=== PATIENT | male | born 1950 | race African-American/Black ===

== ENCOUNTER 2016-06-05 10:32 | Observation (INO) | payer MEDICARE, OTHER ==
[~2016-06-05] VITALS: Ht 162.6 cm; Wt 72.2 kg
[2016-06-05 11:19] LABS: BASO % 1 % (0-3); EOS % 1 % (0-3); HEMATOCRIT 41.5 % (39.0-53.0); HEMOGLOBIN 13.9 g/dL (13.0-17.5); LYMPH # 1.5 x10^3/uL (1.0-4.8); LYMPH % 17 % (24-48); MEAN CORPUSCULAR HEMOGLOBIN 32 pg (25-35); MEAN CORPUSCULAR HGB CONC 34 g/dL (31-37); MEAN CORPUSCULAR VOLUME 95 fL (79-100); MONO % 11 % (0-9); NEUT % 71 % (31-73); PLATELET COUNT 307 x10^3/uL (140-400); RED BLOOD COUNT 4.38 x10^6/uL (4.30-5.70); WHITE BLOOD COUNT 8.7 x10^3/uL (4.0-11.0)
--- NOTE | 2016-06-05 11:19 | RAD ---
Two-view chest x-ray History: Syncopal episode after a dizzy spell this morning. Comparison: March 02, 2005. Findings: No acute lung infiltrate or pleural effusion or pulmonary edema or pneumothorax or lung mass is seen. The heart size and pulmonary vasculature and mediastinum and both marco antonio are stable. Severe scoliosis is seen. IMPRESSION: No acute radiographic abnormality is seen.
--- NOTE | 2016-06-05 11:21 | PHYS DOC ---
Past Medical History Past Medical History: Arrhythmia, Cancer, CHF, Lung Disease Additional Past Medical Histor: SCOLIOSIS, LUNG CA Past Surgical History: Other Additional Past Surgical Histo: L LOBECTOMY Alcohol Use: None Drug Use: None Adult General Chief Complaint Chief Complaint: SYNCOPE HPI HPI Patient is a 65 year old male who presents by EMS for syncopal episode at [facility]. He notes feeling lightheaded and having blurry vision prior to passing out. He had LOC for approx 2 min witnessed by bystanders. He now feels well. He denies chest pain, dyspnea, headache, numbness, tingling, weakness. Denies change in normal morning routine otherwise. No recent illness. States he has h /o CHF and lung cancer that was resected. He has not followed up in years with anyone including cardiology. Review of Systems Review of Systems Constitutional: Denies fever or chills [] Eyes: Denies change in visual acuity, redness, or eye pain [] HENT: Denies nasal congestion or sore throat [] Respiratory: Denies cough or shortness of breath [] Cardiovascular: No additional information not addressed in HPI [] GI: Denies abdominal pain, nausea, vomiting, bloody stools or diarrhea [] : Denies dysuria or hematuria [] Musculoskeletal: Denies back pain or joint pain [] Integument: Denies rash or skin lesions [] Neurologic: Denies headache, focal weakness or sensory changes [] Endocrine: Denies polyuria or polydipsia [] Allergies Allergies Allergies Coded Allergies Type Severity Reaction Last Updated Verified No Known Drug Allergies 10/22/15 No Physical Exam Physical Exam Constitutional: Well developed, well nourished, no acute distress, non-toxic appearance. [] HENT: Normocephalic, atraumatic, bilateral external ears normal, oropharynx moist, nose normal. [] Eyes: PERRLA, EOMI. [] Neck: Normal range of motion, supple. [] Cardiovascular: Heart rate regular rhythm [] Lungs & Thorax: Bilateral breath sounds clear to auscultation [] Abdomen: Bowel sounds normal, soft, no tenderness. [] Skin: Warm, dry, no erythema, no rash. [] Back: No tenderness, no CVA tenderness. [] Extremities: No tenderness, ROM intact, no edema. [] Neurologic: Alert and oriented X 3, normal motor function, normal sensory function, no focal deficits noted. [] Psychologic: Affect normal, judgement normal, mood normal. [] Current Patient Data Vital Signs Vital Signs Date Time Temp Pulse Resp B/P Pulse Ox O2 Delivery O2 Flow Rate FiO2 06/05/16 11:04 72 23 133/78 95 Room Air 06/05/16 10:32 98.0 98.0 Lab Values Laboratory Tests Test 06/05/16 10:40 White Blood Count 8.7x10^3/uL (4.0-11.0) Red Blood Count 4.38x10^6/uL (4.30-5.70) Hemoglobin 13.9g/dL (13.0-17.5) Hematocrit 41.5% (39.0-53.0) Mean Corpuscular Volume 95fL (79-100) Mean Corpuscular Hemoglobin 32pg (25-35) Mean Corpuscular Hemoglobin Concent 34g/dL (31-37) Red Cell Distribution Width 13.0% (11.5-14.5) Platelet Count 307x10^3/uL (140-400) Neutrophils (%) (Auto) 71% (31-73) Lymphocytes (%) (Auto) 17% (24-48) L Monocytes (%) (Auto) 11% (0-9) H Eosinophils (%) (Auto) 1% (0-3) Basophils (%) (Auto) 1% (0-3) Neutrophils # (Auto) 6.1x10^3uL (1.8-7.7) Lymphocytes # (Auto) 1.5x10^3/uL (1.0-4.8) Monocytes # (Auto) 0.9x10^3/uL (0.0-1.1) Eosinophils # (Auto) 0.1x10^3/uL (0.0-0.7) Basophils # (Auto) 0.0x10^3/uL (0.0-0.2) Sodium Level 140mmol/L (136-145) Potassium Level 3.9mmol/L (3.5-5.1) Chloride Level 104mmol/L (98-107) Carbon Dioxide Level 30mmol/L (21-32) Anion Gap 6 (6-14) Blood Urea Nitrogen 13mg/dL (8-26) Creatinine 1.1mg/dL (0.7-1.3) Estimated GFR (Cockcroft-Gault) 80.8 Glucose Level 116mg/dL (70-99) H Calcium Level 9.2mg/dL (8.5-10.1) Magnesium Level 2.1mg/dL (1.8-2.4) Troponin I Quantitative < 0.017ng/mL (0.000-0.055) EW-Bae-D-Type Natriuretic Peptide 31pg/mL (0-124) Laboratory Tests 06/05/16 10:40 Laboratory Tests 06/05/16 10:40 EKG EKG EKG as interpreted by me as normal sinus rhythm, rate 76, no ST-T changes, normal intervals, no ectopy Radiology/Procedures Radiology/Procedures Chest xray as interpreted by me with no acute cardiopulmonary disease process Course & Med Decision Making Course & Med Decision Making Pertinent Labs and Imaging studies reviewed. (See chart for details) Workup is unremarkable. With history of congestive heart failure that is unmonitored, we will admit for syncope. Discussed case with Dr. Chiu, who will admit. Cardiology consultation placed. Rio Disclaimer Dragon Disclaimer This electronic medical record was generated, in whole or in part, using a voice recognition dictation system. Departure Departure Impression: Primary Impression: Syncope Disposition: 09 ADMITTED INPATIENT Condition: STABLE Referrals: NO PCP (PCP) Problem Qualifiers Primary Impression: Syncope Syncope type: unspecified Qualified Code: R55 - Syncope and collapse Ruth Ann RODRIGUEZ MD Jun 05, 2016 11:21
[2016-06-05 11:24] LABS: CALCIUM 9.2 mg/dL (8.5-10.1); CREATININE 1.1 mg/dL (0.7-1.3); GFR 80.8; MAGNESIUM 2.1 mg/dL (1.8-2.4); POTASSIUM 3.9 mmol/L (3.5-5.1)
--- NOTE | 2016-06-05 11:44 | EKG ---
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
--- NOTE | 2016-06-05 12:17 | ACF ---
Admission Forms Criteria SYNCOPE Clinical Indications for Admission to Inpatient Care ( Place 'X' for any and all applicable criteria): Admission is indicated for syncope and ANY ONE of the following (1)(2)(3)(4)(5) (6)(7) : [X]I. Inpatient admission required rather than observation care (Also use Syncope: Observation Care Criteria as appropriate) because of ANY ONE of the following: [ ]a) Hemodynamic instability that is severe or persistent [ ]b) Cardiac arrhythmias of immediate concern identified or strongly suspected (eg, needs electrophysiologic study) [ ]c) Acute coronary syndrome identified (Also use Myocardial Infarction or Angina Criteria form ) [ ]d) Structural cardiac disorder (eg, aortic stenosis) suspected as cause that requires immediate correction [ ]e) Respiratory symptoms (eg, dyspnea, tachypnea) that are severe or persistent [ ]f) Neurologic signs or symptoms that are severe or persistent ( eg, stroke, seizures, altered mental status) [ ]g) Severe electrolyte abnormalities requiring inpatient care [ ]h) Supplemental oxygen or respiratory treatment for over 24 hrs that are performable only in acute inpatient setting [ ]i) IV fluid to replace significant ongoing (eg, for over 24 hrs ) losses (>3 L/m2 per day) [ ]j) Continuous intravenous infusion of anticoagulation, platelet inhibitor, vasoactive, or antiarrhythmic medication(15)(16) [ ]k) Pulmonary artery catheter monitoring [ ]l) Temporary pacemaker placement(17) [ ]m) Emergent cardioversion(18) [X]n) Other conditions, treatment or monitoring requiring inpatient admission [ ]II. Suspicion of imminently dangerous cause (eg, rare causes like pericardial tamponade, pulmonary embolism) [ ]III. Syncope causing severe injury requiring hospitalization Extended stay beyond goal length of stay may be needed for(28) [ ]a) Dangerous arrhythmia(15)(23)(27)(29) [ ]b) Myocardial ischemia [ ]c) Seizure disorder [ ]d) Syncope-related injuries The original [employer] content created by [email or web address] has been revised. The portions of the content which have been revised are identified through the use of italic text or in bold, and [email or web address] has neither reviewed nor approved the modified material. All other unmodified content is copyright [employer]. Please see references footnoted in the original [facility] edition 2016 Admission Criteria Met?: Yes ANDREW RANGEL Jun 05, 2016 12:17
[2016-06-05 13:00] VITALS: BP 127/85
[2016-06-05 14:27] VITALS: BP 124/75
[2016-06-05] MEDS ORDERED: ACETAMINOPHEN 325 MG TABLET. PO PRN ×2 (14:30→14:45)
[2016-06-05] MEDS ORDERED: ONDANSETRON PF 4 MG/2 ML VIAL. IV PRN ×2 (14:30→14:45)
--- NOTE | 2016-06-05 14:37 | PDOC1 ---
History and Physical Current Problem List Problem List Problems Medical Problems: (1) Syncope Status: Acute Current Medications Current Medications Current Medications Medications (Trade) Dose Ordered Sig/Antonia Start Time Stop Time Status Last Admin Dose Admin Acetaminophen (Tylenol) 650 mg PRN Q4HRS PRN 06/05/16 14:30 06/06/16 14:29 UNV Ondansetron HCl (Zofran) 4 mg PRN Q8HRS PRN 06/05/16 14:30 06/06/16 14:29 UNV Allergies Allergies Allergies Coded Allergies Type Severity Reaction Last Updated Verified No Known Drug Allergies 10/22/15 No ROS Review of System CONSTITUTIONAL: No fever or chills EYES: No recent changes SKIN: No rash or itching CARDIOVASCULAR: syncope, RESPIRATORY: No SOB or cough GASTROINTESTINAL: No nausea, vomiting or abdominal pain NEUROLOGICAL: No headaches or weakness ENDOCRINE: No cold or heat intolerance GENITOURINARY: No urgency or frequency of urination MUSCULOSKELETAL: No back pain or joint pain LYMPHATICS: No enlarged lymph nodes PSYCHIATRIC: No anxiety or depression Physical Exam Physical Exam GEN.: No apparent distress. Alert and oriented. HEENT: Head is normocephalic, atraumatic NECK: Supple. LUNGS: Clear to auscultation. HEART: RRR, S1, S2 present. Peripheral pulses intact ABDOMEN: Soft, nontender. Positive bowel sounds. EXTREMITIES: Without any cyanosis. NEUROLOGIC: Normal speech, normal tone PSYCHIATRIC: Normal affect, normal mood. SKIN: No ulcerations Vitals Vitals Vital Signs Date Time Temp Pulse Resp B/P Pulse Ox O2 Delivery O2 Flow Rate FiO2 06/05/16 14:27 98.0 78 18 124/75 97 Room Air 98.0 Labs Labs Laboratory Tests Test 06/05/16 10:40 White Blood Count 8.7x10^3/uL (4.0-11.0) Red Blood Count 4.38x10^6/uL (4.30-5.70) Hemoglobin 13.9g/dL (13.0-17.5) Hematocrit 41.5% (39.0-53.0) Mean Corpuscular Volume 95fL (79-100) Mean Corpuscular Hemoglobin 32pg (25-35) Mean Corpuscular Hemoglobin Concent 34g/dL (31-37) Red Cell Distribution Width 13.0% (11.5-14.5) Platelet Count 307x10^3/uL (140-400) Neutrophils (%) (Auto) 71% (31-73) Lymphocytes (%) (Auto) 17% (24-48) Monocytes (%) (Auto) 11% (0-9) Eosinophils (%) (Auto) 1% (0-3) Basophils (%) (Auto) 1% (0-3) Neutrophils # (Auto) 6.1x10^3uL (1.8-7.7) Lymphocytes # (Auto) 1.5x10^3/uL (1.0-4.8) Monocytes # (Auto) 0.9x10^3/uL (0.0-1.1) Eosinophils # (Auto) 0.1x10^3/uL (0.0-0.7) Basophils # (Auto) 0.0x10^3/uL (0.0-0.2) Sodium Level 140mmol/L (136-145) Potassium Level 3.9mmol/L (3.5-5.1) Chloride Level 104mmol/L (98-107) Carbon Dioxide Level 30mmol/L (21-32) Anion Gap 6 (6-14) Blood Urea Nitrogen 13mg/dL (8-26) Creatinine 1.1mg/dL (0.7-1.3) Estimated GFR (Cockcroft-Gault) 80.8 Glucose Level 116mg/dL (70-99) Calcium Level 9.2mg/dL (8.5-10.1) Magnesium Level 2.1mg/dL (1.8-2.4) Troponin I Quantitative < 0.017ng/mL (0.000-0.055) OD-Xyi-G-Type Natriuretic Peptide 31pg/mL (0-124) Laboratory Tests Test 06/05/16 10:40 White Blood Count 8.7x10^3/uL (4.0-11.0) Red Blood Count 4.38x10^6/uL (4.30-5.70) Hemoglobin 13.9g/dL (13.0-17.5) Hematocrit 41.5% (39.0-53.0) Mean Corpuscular Volume 95fL (79-100) Mean Corpuscular Hemoglobin 32pg (25-35) Mean Corpuscular Hemoglobin Concent 34g/dL (31-37) Red Cell Distribution Width 13.0% (11.5-14.5) Platelet Count 307x10^3/uL (140-400) Neutrophils (%) (Auto) 71% (31-73) Lymphocytes (%) (Auto) 17% (24-48) Monocytes (%) (Auto) 11% (0-9) Eosinophils (%) (Auto) 1% (0-3) Basophils (%) (Auto) 1% (0-3) Neutrophils # (Auto) 6.1x10^3uL (1.8-7.7) Lymphocytes # (Auto) 1.5x10^3/uL (1.0-4.8) Monocytes # (Auto) 0.9x10^3/uL (0.0-1.1) Eosinophils # (Auto) 0.1x10^3/uL (0.0-0.7) Basophils # (Auto) 0.0x10^3/uL (0.0-0.2) Sodium Level 140mmol/L (136-145) Potassium Level 3.9mmol/L (3.5-5.1) Chloride Level 104mmol/L (98-107) Carbon Dioxide Level 30mmol/L (21-32) Anion Gap 6 (6-14) Blood Urea Nitrogen 13mg/dL (8-26) Creatinine 1.1mg/dL (0.7-1.3) Estimated GFR (Cockcroft-Gault) 80.8 Glucose Level 116mg/dL (70-99) Calcium Level 9.2mg/dL (8.5-10.1) Magnesium Level 2.1mg/dL (1.8-2.4) Troponin I Quantitative < 0.017ng/mL (0.000-0.055) VC-Til-K-Type Natriuretic Peptide 31pg/mL (0-124) VTE Prophylaxis Ordered VTE Prophylaxis Devices: No VTE Pharmacological Prophylaxi: No PATRIC BUCKLEY MD Jun 05, 2016 14:37
[2016-06-05] MEDS ORDERED: hydrALAZINE 20 MG/ML VIAL. IVP PRN (14:45)
[2016-06-05] MEDS ORDERED: IV NORMAL SALINE 1000ML BAG 1,000 ML IV ONE (14:45)
[2016-06-05] MEDS ORDERED: ALBUTEROL SULFATE 2.5 MG/3 ML NEBU. NEB PRN (14:45)
[2016-06-05] MEDS ORDERED: HYDROCODONE/APAP 5/325MG TABLET. PO PRN (14:45)
--- NOTE | 2016-06-05 16:33 | RAD ---
Clinical indications: Syncope today. Technique: Noncontrast axial cross sectional scanning of the head was performed. PQRS Compliance Statement: One or more of the following individualized dose reduction techniques were utilized for this examination: 1. Automated exposure control 2. Adjustment of the mA and/or kV according to patient size 3. Use of iterative reconstruction technique Findings: No acute intracranial hemorrhage or midline shift or mass-effect or hydrocephalus or extra-axial fluid collection is seen. No focal hypodense area or sulci effacement is seen to indicate an acute infarct or edema radiographically. No skull fracture or pneumocephalus is seen. No opacification of the mastoid sinuses or the paranasal sinuses is seen. The maxillary sinuses are not completely seen in this study. Impression: No acute intracranial abnormality is seen.
--- NOTE | 2016-06-05 18:20 | HP ---
ADMIT DATE: 06/05/2016 CHIEF COMPLAINT: Syncope. HISTORY OF PRESENT ILLNESS: A 65-year-old -[place] male patient with a prior history of coronary artery disease unknown and arrhythmias and lung cancer, presented to the ER with complaints of syncope. Reportedly, the patient has been feeling some dizziness for last 2 weeks. This morning, he attended for a roman catholic gathering. He felt feeling dizzy and lightheaded and blurring of vision and passed out. He nearly passed out for 1 or 2 minutes and later he regained consciousness, but mildly confused for a few seconds as per the . He did have palpitations that he described as pins and needle sensation. He denies any nausea, vomiting, or profuse sweating. Five or six years ago, he had a diagnosis for CAD; however, at that time due to his lung cancer, further workup has never been done and the patient did not follow up with cardiology. He did have family history of coronary artery disease. Mother had a heart attack when she was in early 40s. PAST MEDICAL HISTORY: Arrhythmia, cancer of the lung, CHF, scoliosis. PAST SURGICAL HISTORY: Lobectomy. PERSONAL HISTORY: No smoking, no alcohol, no drug abuse. FAMILY HISTORY: Mother had a heart attack. ALLERGIES: NKDA. REVIEW OF SYSTEMS: Please see my electronic H and P. PHYSICAL EXAMINATION: Please see my electronic H and P. LABORATORY FINDINGS: 1. Chemistry panel within normal limits including troponins. 2. CBC within normal limits. DIAGNOSTIC DATA: EKG personally reviewed, no acute ST-T wave changes seen. Old Q waves present in the anterior leads. IMAGING STUDIES: Chest x-ray: No acute cardiogenic process seen. ASSESSMENT: 1. Syncope, unclear etiology, rule out arrhythmias and acute coronary syndrome. 2. History of coronary artery disease. 3. History of lung cancer. PLAN: 1. I will order two sets of troponins and echocardiogram. 2. Cardiology has been consulted. 3. Telemetry. 4. CT of the head to rule out any cerebrovascular accident. 5. Physical therapy and occupational therapy, orthostatics in the a.m. 6. Supportive care. 7. He did not recall his own medications, which needs to be verified. 8. DVT prophylaxis. PATRIC BUCKLEY MD DR: MARQUITA/ana maria JOB#: [id number] / [id number] ALESSANDRO
[2016-06-05 19:57] VITALS: BP 105/63
[2016-06-05 23:05] VITALS: BP 121/72
[2016-06-06 03:05] VITALS: BP 100/67
[2016-06-06 07:23] LABS: BASO % 0 % (0-3); EOS % 3 % (0-3); HEMATOCRIT 38.8 % (39.0-53.0); HEMOGLOBIN 12.5 g/dL (13.0-17.5); LYMPH # 1.7 x10^3/uL (1.0-4.8); LYMPH % 19 % (24-48); MEAN CORPUSCULAR HEMOGLOBIN 31 pg (25-35); MEAN CORPUSCULAR HGB CONC 32 g/dL (31-37); MEAN CORPUSCULAR VOLUME 97 fL (79-100); MONO % 11 % (0-9); NEUT % 66 % (31-73); PLATELET COUNT 304 x10^3/uL (140-400); RED BLOOD COUNT 4.02 x10^6/uL (4.30-5.70); WHITE BLOOD COUNT 9.2 x10^3/uL (4.0-11.0)
[2016-06-06 07:38] VITALS: BP 105/76
[2016-06-06 07:51] LABS: CALCIUM 8.3 mg/dL (8.5-10.1); GFR 90.2; POTASSIUM 3.8 mmol/L (3.5-5.1)
[2016-06-06 07:59] LABS: CHOLESTEROL/HDL RATIO 5.4
[2016-06-06 08:03] VITALS: BP 115/75
[2016-06-06 08:04] VITALS: BP_SYST 118; BP_SYST 123; BP_DIAS 72; BP_DIAS 89
--- NOTE | 2016-06-06 11:05 | PDOC2 ---
ALEJANDROMARY KATE Alejandrina DREDGE MATE 06/06/16 1105: CARDIAC CONSULT DATE OF CONSULT Date of Consult DATE: 06/06/16 TIME: 11:05 REASON FOR CONSULT Reason for Consult: syncope REFERRING PHYSICIAN Referring Physician: Dr. Walter Trejo SOURCE Source: Chart review, Patient HISTORY OF PRESENT ILLNESS HISTORY OF PRESENT ILLNESS 65 year old male with a 1 - 2 minute episode of syncope in [employer] yesterday a.m. Was dizzy and lightheaded prior to going to [employer]ian[employer] and reports complaints of dizziness for the last week. Did not eat breakfast yesterday a.m. and drank only coffee; was standing when episode occurred. No previous similar symptoms. Also with 3 episodes of substernal "pin sticking" in the last week not associated with other symptoms. 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 Also with ? of cardiac dysrhythmia > 5 years ago at the same time. EKG without acute changes and troponin levels with evidence of AMI. Reason for Visit: syncope PAST MEDICAL HISTORY Cardiovascular: CHF, HI (? 5 years ago), Hyperlipidemia Pulmonary: Other (lung cancer with previous Left lobectomy ~ 5 years ago) CENTRAL NERVOUS SYSTEM: Other (denies) GI: No pertinent hx Heme/Onc: No pertinent hx Hepatobiliary: No pertinent hx Psych: No pertinent hx Musculoskeletal: Osteoarthritis, Other (scoliosis) Rheumatologic: No pertinent hx ENT: No pertinent hx Renal/: No pertinent hx Endocrine: No pertinent hx Dermatology: No pertinent hx PAST SURGICAL HISTORY Past Surgical History: Other (see PMH) FAMILY HISTORY Family History: Coronary Artery Disease (brother in his 50s), Other (CHF - mother) SOCIAL HISTORY Smoke: Quit (~ 5 years ago) ALCOHOL: rare Drugs: None Lives: with Family CURRENT MEDICATIONS CURRENT MEDICATIONS Current Medications Medications (Trade) Dose Ordered Sig/Antonia Route PRN Reason Start Time Stop Time Status Last Admin Dose Admin Sodium Chloride (Iv Sodium Chloride 0.9% 1000ml Bag) 1,000 ml @ 75 mls/hr 1X ONCE IV 06/05/16 14:45 06/06/16 04:04 DC 06/05/16 15:03 ALLERGIES ALLERGIES: Coded Allergies: No Known Drug Allergies (Unverified , 10/22/15) ROS General: No: Appetite, Chills, Fatigue, Malaise, Night Sweats, Other PSYCHOLOGICAL ROS: No: Anxiety, Behavioral Disorder, Concentration difficultie , Decreased libido, Depression, Disorientation, Hallucinations, Hostility, Irritablity, Memory difficulties, Mood Swings, Obsessive thoughts, Other, Physical abuse, Sexual abuse, Sleep disturbances, Suicidal ideation Eyes: No Blurry vision, No Decreased vision, No Double vision, No Dry eyes, No Excessive tearing, No Eye Pain, No Itchy Eyes, No Loss of vision, No Other, No Photophobia, No Scotomata, No Uses contacts, No Uses glasses HEENT: No: Epistaxis, Heacaches, Hearing change, Nasal congestion, Nasal discharge, Oral lesions, Other, Sinus pain, Sneezing, Snoring, Sore Throat, Tinnitus, Vertigo, Visual Changes, Vocal changes ALLERGY AND IMMUNOLOGY: No: Hives, Insect Bite Sensitivity, Itchy/Watery Eyes, Nasal Congestion, Other, Post Nasal Drip, Seasonal Allergies Hematological and Lymphatic: No: Bleeding Problems, Blood Clots, Blood Transfusions, Brusing, Night Sweats, Other, Pallor, Swollen Lymph Nodes ENDOCRINE: No: Breast Changes, Galactorrhea, Hair Pattern Changes, Hot Flashes , Malaise/lethargy, Mood Swings, Other, Palpitations, Polydipsia/polyuria, Skin Changes, Temperature Intolerance, Unexpected Weight Changes Breast: No New/Changing Breast Lumps, No Nipple changes, No Nipple discharge, No Other Respiratory: No: Cough, Hemoptysis, Orthopnea, Other, Pleuritic Pain, SOB with excertion, Shortness of breath, Sputum Changes, Stridor, Tachypnea, Wheezing Cardiovascular: yes Chest Pain, No Edema, No Lt Headedness, No Orthopnea, No Other, No Palpitations, No Paroxysmal Noc. Dyspnea Gastrointestinal: No Abdominal Pain, No Constipation, No Diarrhea, No Hematochezia, No Melena, No Nausea, No Other, No Vomiting Genitourinary: No Discharge, No Dysuria, No Flank Pain, No Frequency, No Hematuria, No Incontinence, No Other, No Pain, No Retention, No Urgency Musculoskeletal: No Gait Disturbance, No Joint Pain, No Joint Stiffness, No Joint Swelling, No Muscle Pain, No Muscular Weakness, No Other, No Pain In:, No Swelling In: Neurological: Yes Dizziness, Yes Other (syncope) Skin: No Acne, No Dry Skin, No Eczema, No Hair Changes, No Lumps, No Mole Changes, No Mottling, No Nail Changes, No Other, No Pruritus, No Rash, No Skin Lesion Changes PHYSICAL EXAM General: Alert, Oriented X3, Cooperative, No acute distress HEENT: Atraumatic, PERRLA, Mucous membr. moist/pink Lungs: Clear to auscultation (and decreased in left base) Heart: Regular rate (bradycardic - 45-50), Normal S1, Normal S2, No murmurs Abdomen: Normal bowel sounds, Soft, No tenderness Extremities: No edema, Normal pulses Skin: No rashes Neuro: Normal speech Psych/Mental Status: Mental status NL, Mood NL MUSCULOSKELETAL: Osteoarthritic changes both hands VITALS VITALS Vital Signs Date Time Temp Pulse Resp B/P Pulse Ox O2 Delivery O2 Flow Rate FiO2 06/06/16 08:04 91 123/89 06/06/16 08:00 Room Air 06/06/16 07:38 97.1 18 92 97.1 LABS Lab: Laboratory Tests Test 06/05/16 18:25 06/05/16 23:05 06/06/16 06:00 Troponin I Quantitative < 0.017ng/mL (0.000-0.055) < 0.017ng/mL (0.000-0.055) White Blood Count 9.2x10^3/uL (4.0-11.0) Red Blood Count 4.02x10^6/uL (4.30-5.70) Hemoglobin 12.5g/dL (13.0-17.5) Hematocrit 38.8% (39.0-53.0) Mean Corpuscular Volume 97fL (79-100) Mean Corpuscular Hemoglobin 31pg (25-35) Mean Corpuscular Hemoglobin Concent 32g/dL (31-37) Red Cell Distribution Width 13.0% (11.5-14.5) Platelet Count 304x10^3/uL (140-400) Neutrophils (%) (Auto) 66% (31-73) Lymphocytes (%) (Auto) 19% (24-48) Monocytes (%) (Auto) 11% (0-9) Eosinophils (%) (Auto) 3% (0-3) Basophils (%) (Auto) 0% (0-3) Neutrophils # (Auto) 6.1x10^3uL (1.8-7.7) Lymphocytes # (Auto) 1.7x10^3/uL (1.0-4.8) Monocytes # (Auto) 1.0x10^3/uL (0.0-1.1) Eosinophils # (Auto) 0.3x10^3/uL (0.0-0.7) Basophils # (Auto) 0.0x10^3/uL (0.0-0.2) Sodium Level 141mmol/L (136-145) Potassium Level 3.8mmol/L (3.5-5.1) Chloride Level 106mmol/L (98-107) Carbon Dioxide Level 29mmol/L (21-32) Anion Gap 6 (6-14) Blood Urea Nitrogen 13mg/dL (8-26) Creatinine 1.0mg/dL (0.7-1.3) Estimated GFR (Cockcroft-Gault) 90.2 Glucose Level 92mg/dL (70-99) Calcium Level 8.3mg/dL (8.5-10.1) Triglycerides Level 61mg/dL (0-150) Cholesterol Level 206mg/dL (0-200) LDL Cholesterol, Calculated 156mg/dL (0-100) VLDL Cholesterol, Calculated 12mg/dL (0-40) Non-HDL Cholesterol Calculated 168mg/dL (0-129) HDL Cholesterol 38mg/dL (40-60) Cholesterol/HDL Ratio 5.4 IMAGES IMAGES CXR without acute findings EKG EKG no acute changes ASSESSMENT/PLAN ASSESSMENT/PLAN 1. syncope no evidence of orthostasis mildly bradycardic on tele - consider event monitor @ discharge echo to evaluate for valvular heart disease 2. chest pain, atypical ? history of HI/dysrhythmia request records from risk factors: family history of CAD; HLD, tobacco abuse; ? hx - MPI recommended for further evaluation 3. cancer, lung, with previous lobectomy ? follow up may benefit from pulm consultation 4. HLD check FLP 5. ? of CHF details unknown records requested Preceding discussed with patient and and he was agreeable to testing. Notified by nursing about 10 minutes after completion of consultation pt is declining care and leaving AMA. Problems: DAVI ORTEZ MD 06/06/16 2207: CARDIAC CONSULT ALLERGIES ALLERGIES: Coded Allergies: No Known Drug Allergies (Unverified , 10/22/15) ASSESSMENT/PLAN ASSESSMENT/PLAN Pt. unable to be seen due to leaving AMA. Per above note. Problems: MARY KATE ALLEN APRN June 06, 2016 11:05 DAVI ORTEZ MD June 06, 2016 22:07
--- NOTE | 2016-06-06 12:31 | PDOC ---
PROGRESS NOTES Chief Complaint Chief Complaint .1 Syncope, , 2/2 vasovagal syncope likely 2. History of coronary artery disease. 3. History of lung cancer. plan: fu with card, waiting for records pt signed AMA, however History of Present Illness History of Present Illness feels ok no chest pain neg orthostatic bp Vitals Vitals Vital Signs Date Time Temp Pulse Resp B/P Pulse Ox O2 Delivery O2 Flow Rate FiO2 06/06/16 08:04 91 123/89 06/06/16 08:00 Room Air 06/06/16 07:38 97.1 18 92 97.1 Physical Exam General: Alert, Oriented X3, Cooperative, No acute distress Heart: Regular rate (bradycardic - 45-50), Normal S1, Normal S2, No murmurs Abdomen: Normal bowel sounds, Soft, No tenderness Extremities: No edema, Normal pulses Skin: No rashes Labs LABS Laboratory Tests Test 06/05/16 18:25 06/05/16 23:05 06/06/16 06:00 Troponin I Quantitative < 0.017ng/mL (0.000-0.055) < 0.017ng/mL (0.000-0.055) White Blood Count 9.2x10^3/uL (4.0-11.0) Red Blood Count 4.02x10^6/uL (4.30-5.70) Hemoglobin 12.5g/dL (13.0-17.5) Hematocrit 38.8% (39.0-53.0) Mean Corpuscular Volume 97fL (79-100) Mean Corpuscular Hemoglobin 31pg (25-35) Mean Corpuscular Hemoglobin Concent 32g/dL (31-37) Red Cell Distribution Width 13.0% (11.5-14.5) Platelet Count 304x10^3/uL (140-400) Neutrophils (%) (Auto) 66% (31-73) Lymphocytes (%) (Auto) 19% (24-48) Monocytes (%) (Auto) 11% (0-9) Eosinophils (%) (Auto) 3% (0-3) Basophils (%) (Auto) 0% (0-3) Neutrophils # (Auto) 6.1x10^3uL (1.8-7.7) Lymphocytes # (Auto) 1.7x10^3/uL (1.0-4.8) Monocytes # (Auto) 1.0x10^3/uL (0.0-1.1) Eosinophils # (Auto) 0.3x10^3/uL (0.0-0.7) Basophils # (Auto) 0.0x10^3/uL (0.0-0.2) Sodium Level 141mmol/L (136-145) Potassium Level 3.8mmol/L (3.5-5.1) Chloride Level 106mmol/L (98-107) Carbon Dioxide Level 29mmol/L (21-32) Anion Gap 6 (6-14) Blood Urea Nitrogen 13mg/dL (8-26) Creatinine 1.0mg/dL (0.7-1.3) Estimated GFR (Cockcroft-Gault) 90.2 Glucose Level 92mg/dL (70-99) Calcium Level 8.3mg/dL (8.5-10.1) Triglycerides Level 61mg/dL (0-150) Cholesterol Level 206mg/dL (0-200) LDL Cholesterol, Calculated 156mg/dL (0-100) VLDL Cholesterol, Calculated 12mg/dL (0-40) Non-HDL Cholesterol Calculated 168mg/dL (0-129) HDL Cholesterol 38mg/dL (40-60) Cholesterol/HDL Ratio 5.4 Thyroid Stimulating Hormone (TSH) 0.856uIU/mL (0.358-3.74) Review of Systems Review of Systems no fever, chills, sob or chest pain Assessment and Plan Assessmemt and Plan Problems Medical Problems: (1) Syncope Status: Acute Problems: Comment Review of Relevant I have reviewed the following items julio cesar (where applicable) has been applied. Labs Laboratory Tests Test 06/05/16 10:40 06/05/16 18:25 06/05/16 23:05 06/06/16 06:00 White Blood Count 8.7x10^3/uL (4.0-11.0) 9.2x10^3/uL (4.0-11.0) Red Blood Count 4.38x10^6/uL (4.30-5.70) 4.02x10^6/uL (4.30-5.70) Hemoglobin 13.9g/dL (13.0-17.5) 12.5g/dL (13.0-17.5) Hematocrit 41.5% (39.0-53.0) 38.8% (39.0-53.0) Mean Corpuscular Volume 95fL (79-100) 97fL (79-100) Mean Corpuscular Hemoglobin 32pg (25-35) 31pg (25-35) Mean Corpuscular Hemoglobin Concent 34g/dL (31-37) 32g/dL (31-37) Red Cell Distribution Width 13.0% (11.5-14.5) 13.0% (11.5-14.5) Platelet Count 307x10^3/uL (140-400) 304x10^3/uL (140-400) Neutrophils (%) (Auto) 71% (31-73) 66% (31-73) Lymphocytes (%) (Auto) 17% (24-48) 19% (24-48) Monocytes (%) (Auto) 11% (0-9) 11% (0-9) Eosinophils (%) (Auto) 1% (0-3) 3% (0-3) Basophils (%) (Auto) 1% (0-3) 0% (0-3) Neutrophils # (Auto) 6.1x10^3uL (1.8-7.7) 6.1x10^3uL (1.8-7.7) Lymphocytes # (Auto) 1.5x10^3/uL (1.0-4.8) 1.7x10^3/uL (1.0-4.8) Monocytes # (Auto) 0.9x10^3/uL (0.0-1.1) 1.0x10^3/uL (0.0-1.1) Eosinophils # (Auto) 0.1x10^3/uL (0.0-0.7) 0.3x10^3/uL (0.0-0.7) Basophils # (Auto) 0.0x10^3/uL (0.0-0.2) 0.0x10^3/uL (0.0-0.2) Sodium Level 140mmol/L (136-145) 141mmol/L (136-145) Potassium Level 3.9mmol/L (3.5-5.1) 3.8mmol/L (3.5-5.1) Chloride Level 104mmol/L (98-107) 106mmol/L (98-107) Carbon Dioxide Level 30mmol/L (21-32) 29mmol/L (21-32) Anion Gap 6 (6-14) 6 (6-14) Blood Urea Nitrogen 13mg/dL (8-26) 13mg/dL (8-26) Creatinine 1.1mg/dL (0.7-1.3) 1.0mg/dL (0.7-1.3) Estimated GFR (Cockcroft-Gault) 80.8 90.2 Glucose Level 116mg/dL (70-99) 92mg/dL (70-99) Calcium Level 9.2mg/dL (8.5-10.1) 8.3mg/dL (8.5-10.1) Magnesium Level 2.1mg/dL (1.8-2.4) Troponin I Quantitative < 0.017ng/mL (0.000-0.055) < 0.017ng/mL (0.000-0.055) < 0.017ng/mL (0.000-0.055) [id number]-Type Natriuretic Peptide 31pg/mL (0-124) Triglycerides Level 61mg/dL (0-150) Cholesterol Level 206mg/dL (0-200) LDL Cholesterol, Calculated 156mg/dL (0-100) VLDL Cholesterol, Calculated 12mg/dL (0-40) Non-HDL Cholesterol Calculated 168mg/dL (0-129) HDL Cholesterol 38mg/dL (40-60) Cholesterol/HDL Ratio 5.4 Thyroid Stimulating Hormone (TSH) 0.856uIU/mL (0.358-3.74) Laboratory Tests Test 06/05/16 18:25 06/05/16 23:05 06/06/16 06:00 Troponin I Quantitative < 0.017ng/mL (0.000-0.055) < 0.017ng/mL (0.000-0.055) White Blood Count 9.2x10^3/uL (4.0-11.0) Red Blood Count 4.02x10^6/uL (4.30-5.70) Hemoglobin 12.5g/dL (13.0-17.5) Hematocrit 38.8% (39.0-53.0) Mean Corpuscular Volume 97fL (79-100) Mean Corpuscular Hemoglobin 31pg (25-35) Mean Corpuscular Hemoglobin Concent 32g/dL (31-37) Red Cell Distribution Width 13.0% (11.5-14.5) Platelet Count 304x10^3/uL (140-400) Neutrophils (%) (Auto) 66% (31-73) Lymphocytes (%) (Auto) 19% (24-48) Monocytes (%) (Auto) 11% (0-9) Eosinophils (%) (Auto) 3% (0-3) Basophils (%) (Auto) 0% (0-3) Neutrophils # (Auto) 6.1x10^3uL (1.8-7.7) Lymphocytes # (Auto) 1.7x10^3/uL (1.0-4.8) Monocytes # (Auto) 1.0x10^3/uL (0.0-1.1) Eosinophils # (Auto) 0.3x10^3/uL (0.0-0.7) Basophils # (Auto) 0.0x10^3/uL (0.0-0.2) Sodium Level 141mmol/L (136-145) Potassium Level 3.8mmol/L (3.5-5.1) Chloride Level 106mmol/L (98-107) Carbon Dioxide Level 29mmol/L (21-32) Anion Gap 6 (6-14) Blood Urea Nitrogen 13mg/dL (8-26) Creatinine 1.0mg/dL (0.7-1.3) Estimated GFR (Cockcroft-Gault) 90.2 Glucose Level 92mg/dL (70-99) Calcium Level 8.3mg/dL (8.5-10.1) Triglycerides Level 61mg/dL (0-150) Cholesterol Level 206mg/dL (0-200) LDL Cholesterol, Calculated 156mg/dL (0-100) VLDL Cholesterol, Calculated 12mg/dL (0-40) Non-HDL Cholesterol Calculated 168mg/dL (0-129) HDL Cholesterol 38mg/dL (40-60) Cholesterol/HDL Ratio 5.4 Thyroid Stimulating Hormone (TSH) 0.856uIU/mL (0.358-3.74) Medications Current Medications Ondansetron HCl (Zofran) 4 mg PRN Q8HRS PRN IV NAUSEA/VOMITING; Start 06/05/16 at 14:30; Stop 06/06/16 at 14:29 Acetaminophen (Tylenol) 650 mg PRN Q4HRS PRN PO FEVER; Start 06/05/16 at 14:30 ; Stop 06/06/16 at 14:29 Acetaminophen (Tylenol) 325 mg PRN Q6HRS PRN PO MILD PAIN / TEMP; Start at 14:45 Acetaminophen/ Hydrocodone Bitart (Lortab 5/325) 1 tab PRN Q6HRS PRN PO MODERATE TO SEVERE PAIN; Start 06/05/16 at 14:45 Hydralazine HCl (Apresoline) 10 mg PRN Q4HRS PRN IVP ELEVATED BP, SEE COMMENTS ; Start 06/05/16 at 14:45 Ondansetron HCl (Zofran) 4 mg PRN Q8HRS PRN IV NAUSEA/VOMITING; Start 06/05/16 at 14:45 Albuterol Sulfate 2.5 mg 2.5 mg PRN Q4HRS PRN NEB SHORTNESS OF BREATH; Start at 14:45 Sodium Chloride (Iv Sodium Chloride 0.9% 1000ml Bag) 1,000 ml @ 75 mls/hr 1X ONCE IV Last administered on 06/05/16t 15:03; Start 06/05/16 at 14:45; Stop 06/06/16 at 04:04; Status DC Vitals/I & O Vital Sign - Last 24 Hours 06/05/16 06/05/16 06/05/16 06/05/16 13:00 14:00 14:27 15:50 Temp 98.0 98.0 98.0 98.0 Pulse 74 78 Resp 20 18 B/P 127/85 124/75 Pulse Ox 96 97 96 O2 Delivery Room Air Room Air Room Air Room Air 06/05/16 06/05/16 06/06/16 06/06/16 20:00 23:05 03:05 07:38 Temp 98.0 98.6 97.1 98.0 98.6 97.1 Pulse 74 70 83 Resp 18 16 18 B/P 121/72 100/67 105/76 Pulse Ox 95 96 92 O2 Delivery Room Air Room Air Room Air Room Air 06/06/16 06/06/16 06/06/16 06/06/16 08:00 08:03 08:04 08:04 Pulse 75 82 91 B/P 115/75 118/72 123/89 O2 Delivery Room Air Intake and Output 06/05/16 06/05/16 06/06/16 15:00 23:00 07:00 Intake Total 150 ml Output Total 275 ml Balance 150 ml -275 ml LILIAN NEWBERRY MD June 06, 2016 12:31
--- NOTE | 2016-06-06 12:43 | CARD ---
APPROVED REPORT EXAM: Two-dimensional and M-mode echocardiogram with Doppler and color Doppler. Other Information Quality : Good INDICATION chest pain LEFT VENTRICLE The left ventricle is normal size. There is normal left ventricular wall thickness. The left ventricu lar systolic function is normal and the ejection fraction is within normal range. There is normal LV segmental wall motion. RIGHT VENTRICLE The right ventricle is normal size. The right ventricular systolic function is normal. ATRIA The left atrium size is normal. The right atrium size is normal. Mildly aneurysmal. AORTIC VALVE The aortic valve is normal in structure and function. Doppler and Color Flow revealed no significant aortic regurgitation. There is no significant aortic valvular stenosis. MITRAL VALVE The mitral valve is normal in structure and function. There is no mitral valve stenosis. Doppler and Color Flow revealed no mitral valve regurgitation noted. TRICUSPID VALVE The tricuspid valve is normal in structure and function. Doppler and Color Flow revealed no tricuspid valve regurgitation noted. There is no tricuspid valve stenosis. PULMONIC VALVE The pulmonary valve is normal in structure and function. Doppler and Color Flow revealed no pulmonic valvular regurgitation. There is no pulmonic valvular stenosis. GREAT VESSELS The aortic root is normal in size. The pulmonary artery is normal. PERICARDIAL EFFUSION There is no pleural effusion. There is no evidence of significant pericardial effusion. Critical Notification Critical Value: No <Conclusion> Normal LV function. EF 65% Normal wall motion
== END 2016-06-06 11:30 | disposition left against medical advice (07) ==
LOC: ER 10:32 → 2 SOUTH 11:40
PROVIDERS: ADMIT Internal Medicine; ATTEND Internal Medicine
DX: R55 Syncope and collapse (principal); E78.5 Hyperlipidemia, unspecified; I25.10 Atherosclerotic heart disease of native coronary artery without angina pectoris; I25.2 Old myocardial infarction; I50.9 Heart failure, unspecified; M41.9 Scoliosis, unspecified; Z85.118 Personal history of other malignant neoplasm of bronchus and lung
CPT/HCPCS: 36415; 70450; 71020; 80048; 80061; 83735; 83880; 84443; 84484; 85027; 93005; 93306; 94250; 94760; 96360; 96361; 99285; G0378; J7030; G0379

== ENCOUNTER 2017-04-03 20:17 | Emergency (ER) | payer MEDICARE, OTHER | END 2017-04-03 21:29 | disposition home or self-care (01) | LOC: ER 20:17 | DX: S69.92XA Unspecified injury of left wrist, hand and finger(s), initial encounter (principal); I50.9 Heart failure, unspecified; Y28.8XXA Contact with other sharp object, undetermined intent, initial encounter; Y93.89 Activity, other specified; Y99.8 Other external cause status; Y92.89 Other specified places as the place of occurrence of the external cause | CPT/HCPCS: 99283 ==